=== PATIENT | female | born 1995 | race Caucasian/White ===

== ENCOUNTER 2016-11-15 13:33 | Inpatient (IN) | payer OTHER, MEDICAID ==
[~2016-11-15] VITALS: Ht 172.7 cm; Wt 91.6 kg
[2016-11-15 15:11] LABS: Mean Corpuscular Hemoglobin 27.8 pg (27.0-35.0); Mean Corpuscular Volume 82.5 fL (81-100)
[2016-11-15 19:41] LABS: APPEARANCE,URINE CLEAR (CLEAR,HAZY); COLOR,URINE STRAW (YELLOW); OCCULT BLOOD,URINE NEGATIVE (NEGATIVE); UROBILINOGEN,URINE NORMAL (NORMAL)
[2016-11-15] MEDS ORDERED: Lactated Ringer's 1,000 ML IV PRN (21:41)
[2016-11-15] MEDS ORDERED: Lactated Ringer's 1,000 ML IV SCH (21:43)
[2016-11-15] MEDS ORDERED: Oxytocin 30 Units/500 mL LR 30 UNITS in IV Premix 1 EACH IV PRN (21:45)
[2016-11-15] MEDS ORDERED: Carboprost 250 mCg/mL Inj IM PRN (21:45)
[2016-11-15] MEDS ORDERED: Calcium GLUCOnate 10% (Gm) 1 Gm/10 mL Inj IV PRN (21:45)
[2016-11-15] MEDS ORDERED: Methylergonovine 0.2 mg/mL Inj IM PRN (21:45)
[2016-11-15] MEDS ORDERED: Sodium Chloride LOK Flush 10 mL Syringe IVFLUSH PRN (21:45)
[2016-11-15] MEDS ORDERED: Hemorrhage Kit, Post Partum XX ONE (21:45)
[2016-11-15] MEDS ORDERED: Oxytocin 10 Unit/mL Inj IM PRN (21:45)
[2016-11-15] MEDS ORDERED: Magnesium Sulf 2 Gm/50mL Water 2 GM in IV Premix 1 EACH IV ONE (21:45)
[2016-11-15] MEDS ORDERED: Magnesium Sulf 4 Gm/100 mL H2O 4 GM in IV Premix 1 EACH IV ONE (21:45)
[2016-11-15] MEDS ORDERED: Labetalol 5 mg/mL 4 mL Inj IV PRN (21:45)
[2016-11-15] MEDS ORDERED: hydrALAZINE 20 mg/mL Inj IVPUSH PRN (21:45)
--- NOTE | 2016-11-15 23:16 | PCM.HPOB ---
Subjective Date of Service: Nov 15, 2016 Referring Provider: Admitting Physician: Jose M Salazar MD Primary Care Physician: Nopcp Attending Physician: Jose M Salazar MD Chief Complaint Headache History of Present History of Present Illness 21 Y/O at 36w2d based on TAMARA 12/11/16 based on 8 weeks US. Pt care at [facility] and was planning for transfer of care to [facility]. Was evaluated at triage room here at [facility] 11/12/16. known gestational HTN on out patient monitoring for the last 1 month. Presented with C/O headache "worst headache ever" , change in vision "seeing flashes". BP mostly at 150's/ 90's but occasional sever BP as high as 199/ 110. 11/12/16 had proteinuria with protein creatinine ratio of 7. Protein creatinine ratio today 0.1 and repeat again today 0.09. No epigastric pain, no N/V. No leg or hand swelling. No contractions no loss of fluid, good movements. Problem list: 1. Pendred syndrome (deaf) 2. Hypothyroidism secondary to thyroidectomy secondary to thyroid papillary carcinoma . on 275 mcg Synthroid. 3. GERD , Pepcid 4. Sleep apnea, recent no work up done. 5. N/V in , resolved. 6. Anemia on iron daily. 7. hx of chronic headache. 8. PTSD 9. Hx of depression/anxiety , controlled cooping mechanisms without medications. 10. Hx of seizures. Past Medical History Obstetrical History: 2011 SAB , early no D&C needed. Gynecologic History: Menarche at age 13, irregular menses (PCOS) , no hx of STI. Hx ogf yeast infections. Medical History: No hx of asthma. 1. Pendred syndrome (deaf) 2. Hypothyroidism secondary to thyroidectomy secondary to thyroid papillary carcinoma . on 275 mcg Synthroid. 3. GERD , Pepcid 4. Sleep apnea, recent no work up done. 5. N/V in , resolved. 6. Anemia on iron daily. 7. hx of chronic headache. 8. PTSD 9. Hx of depression/anxiety , controlled cooping mechanisms without medications. 10. Hx of seizures. Surgical History: Total Thyroidectomy Jul 2011 Hx Tobacco Use: No Hx Alcohol Use: No Hx Substance Use: No Past Family History Family History Father: cardiomegaly (since ) , HTN Sisters: Pendred syndrome, Preeclampsia X2, Hypothyroidism, papillary thyroid CA, depression PGF: HTN, DM2 Breast cancer: (great aunts X3 at age 40) Review of Systems ROS 12 points ROS is negative except for items in HPI. Medications Home medications Levothyroxine 275 mcg Pepcid iron daily Zofran Allergy Coded Allergies: Penicillins (Verified Allergy, Unknown, 04/24/16) hydrocodone bitartrate (Verified Allergy, Unknown, 04/24/16) morphine (Verified Allergy, Unknown, 04/24/16) Ambien (Verified Adverse Reaction, 11/15/16) hallucination Exam Vital Signs BP systolic 130-199 mostly 145's. Diastolic 64-111 , mostly in 90's HR 90-100 T 36.8 RR 20 Exam 145 moderate variability positive accelerations no decelerations, category 1. Constitutional: Well-developed HEENT: Atraumatic Lungs: Clear to Auscultation Heart: Regular Rate/Rhythm, Normal S1, Normal S2 Abdomen: Gravid Extremities: Pulses Palpable x4, No Edema Neurological/Psychiatric: Alert, Oriented X3 Neuro: Reflexes 2+, No Clonus noted Additional Information cervix 1/50%/medium consistency/-3/midposition Caraballo score 4 Labs/Diagnostics Ultra Sound 11/12/16 Vertex Estimated Weight (EFW): 2690 g EFW percentile rank: 40 % Maternal Blood Type: AB Group B Strep Results: Positive Rubella: Immune Lab History: Positive for: Hx Chicken Pox Additional Information DM screen WNL (92)HIV nonreactive, Rubella immune, HBsAg Nonreactive, Thyroglobulin Antibody negative (<0.9) , Toxoplasma IgG and IgM negative, TSH 0.26 (10/01/16), Free T4 1.3(10/01/16). GC/CT negative. GBS negative 11/08/16 10/25/16: 24 hr protein (too low) Anatomy US WNL. OB Intrapartum Assessment/Plan Assessment 1 Y/O at 36w2d based on TAMARA 12/11/16 based on 8 weeks US. Preeclampsia with sever feature based on Elevated BP (labial) and vision change and cerebral symptoms, though absent proteinuria. Patient was discussed with MFM ( Dr. Brigitte Gonzales) via [facility], and she agreed to proceed with induction if labor and plan of care was discussed: 1. start MgSO4 2. IV labetalol or hydralazine for sever BP 3. may consider labetalol oral scheduled dose (will consider after MgSO4 bolus if indicated) 4. Induction of labor. The above plan was discussed with patient and reviewed R/B/A of induction of labor and risk of prematurity, patient agreed to the above plan and desires to proceed with Induction of labor, informed consent was signed. Cervidil was placed at 2213. monitor for I/O Magnesium level Q6 Preeclampsia labs Q 12 hours ' bedrest seizure precautions Pain Management: considering epidural when in active labor. Edith Galdamez MD Nov 15, 2016 23:16
[2016-11-15] MEDS ORDERED: diphenhydrAMINE 25 mg Capsule PO PRN (23:35)
[2016-11-16] MEDS ORDERED: Magnesium Sulfate 20 Gm/500 mL Water Premix IV ONE (00:17)
[2016-11-16] MEDS: Magnesium Sulf 20 Gm/500mL H2O 20 GM in IV Premix 1 EACH IV SCH ×3 (00:26→19:40)
--- NOTE | 2016-11-16 01:06 | HP ---
[address] [address] HISTORY AND PHYSICAL PATIENT: CARLOS MCLEAN : 1995 MR#: [id number] ADMIT: 11/15/2016 JOB ID: [id number] HISTORY OF PRESENT ILLNESS: The patient is a 21-year-old, 2, para 0, who has been getting her care at [facility] in [place], [place], comes to Labor and Delivery with complaint of headache. Patient also reports slight blurred vision. She had her blood pressure checked in triage several times. It is in 150s/100s. She reports good movements. heart rate tracing is reactive, category 1. Baseline 140 beats per minute. The patient does not have any contractions. PHYSICAL EXAMINATION: Vital signs: Blood pressure 152/100, pulse 80, respiratory rate 18. Oxygen saturation 98% on room air. HEENT: PERRLA. Chest: Clear bilaterally. No adventitious sounds. Cardiovascular: Regular rate and rhythm. Abdomen is gravid, fundal height at 36 cm, nontender. Extremities: No pitting edema. Pelvic exam declined. OBSTETRICAL HISTORY: She has a history of one spontaneous in the first trimester in 2011. PAST MEDICAL HISTORY: 1. Anxiety. 2. Papillary carcinoma of the thyroid, status post thyroidectomy, currently receiving supplemental levothyroxine. 3. Depressive disorder. 4. History of seizures. 5. History of recurrent headache. FAMILY HISTORY: Significant for thyroid disease and -induced hypertension in her sister. CURRENT MEDICATIONS: 1. Synthroid, a total of 275 mcg per day. 2. vitamins. ALLERGIES: 1. AUGMENTIN. 2. MORPHINE. 3. PENICILLIN. 4. VICODIN. SOCIAL HISTORY: Patient denies smoking, alcohol, illicit recreational drug use. The patient is having congential deafness, communication is limited, history is obtained through the environmental engineering aide that knows sign language. ASSESSMENT AND PLAN: The patient is a 21-year-old, 2, para 0, at 36 weeks and 3 days. Comes to Labor and Delivery with complaint of headache and blurred vision. Blood pressure is elevated in 150s/100s. She had complaints about headache and blood pressure problems on her two recent visits in clinic. The patient is being admitted for observation. Preeclampsia panel labs being sent. Urine is sent for protein and creatinine ratio. Intermittent heart rate monitoring will be provided. -induced hypertension and preeclampsia were discussed with the patient. Possible induction of labor at 37 weeks was discussed. She does not fit the criteria of preeclampsia with severe features at the time of admission. Will follow up on the lab results to discuss further management and possible need for magnesium sulfate. LANDY
[2016-11-16] MEDS: fentaNYL-PF 50 mCg/mL 2 mL Inj IVPUSH PRN ×4 (02:39→10:44)
[2016-11-16] MEDS: Ondansetron 2 mg/mL 2 mL Inj IVPUSH PRN ×4 (04:27→22:12)
--- NOTE | 2016-11-16 08:48 | PCM.PNOBIP ---
Subjective Date of Service Nov 16, 2016 Delivery plan: Spontaneous Vaginal Delivery Subjective 21-year-old 010 presents to [facility] triage on 11/15/2016 with elevated blood pressures and desiring to transfer care. She has previously seen at [facility] in [place]. It was decided to start magnesium infusion and proceed with induction. Patient did not tolerate Cervidil, it was removed just after 6 AM this morning. She is having contractions every 2 minutes. Last cervical check at 4:44 AM was 1 cm 75% effaced and -2 station. She has been getting IV fentanyl for pain control which has not been adequate. She desires epidural when reasonable to do so. Pain Management: IV Push Gastrointestinal: No N/V Group B Strep Results: Negative Rubella: Immune Blood Type: AB RH Type: Positive Labs Laboratory Tests 11/15/16 14:50: White Blood Count 10.0, Red Blood Count 3.95, Hemoglobin 11.0, Hematocrit 32.6, Mean Corpuscular Volume 82.5, Mean Corpuscular Hemoglobin 27.8, Mean Corpuscular Hemoglobin Concent 33.7, Red Cell Distribution Width 11.9, Platelet Count 379, Hematology Comments labs her records from [facility]: Blood type AB+, antibody screen negative, GBS negative, rubella immune, HB SAG nonreactive, HIV nonreactive TSH 1.11, toxoplasmosis negative. Patient had low thyroglobulin level of 0.22 reference range 2.0-35. Gonorrhea Chlamydia negative, glucose tolerance test normal Exam Vital Signs Vital Signs Blood pressure 133/93 heart rate 92-124 bpm Vital Signs: VS reviewed, stable Heart Tracings Heart Tones Baseline 130-135 bpm Heart Rate Variability: Minimal Heart Rate Accelleration: Present Heart Rate Deceleration: Absent Heart Rate Category: I Tocometry/IUPC Contraction frequency in minutes: 2 min irregular Exam Abdomen: Fundus firm Extremities: Edema 1+ Lungs: Clear to Auscultation Heart: Regular Rate/Rhythm, No Murmurs/Rubs/Gallops General: Alert, Oriented X3 OB Intrapartum Assessment/Plan Assessment 21 yo at 36 weeks 3 days gestation with induced hypertension. She has been followed at the [facility] in [place]. Currently on magnesium which should continue until 11/16 at 21:45 for the full 24 hour course. Continue with induction of labor and expectant management Intrapartum plan: Continue expected management Intrapartum Pain Management: May have epidural when desired Pain Evaluation: Pain not Controlled Post plan: Continue routine post care VTE Mechanical Devices: Intermittant Pneumatic CD Attending Statement The patient was seen and examined together with Dr. Orellana on 11/16/2016 and I agree with the history, exam and plan as outlined in the note above. She is doing well. Cervidil was placed last night at 10pm and removed this am at 6 d/t patient's pain. Her pain is better controlled with Fentanyl. I discussed next step in management after her cervical exam was found to be bishops score of 6 with 1.5cm/80%/-2 anterior. I placed a cervical ripening balloon and put 60mL in internal balloon, 30mL in vaginal balloon. Continue IOL. No signs or symptoms of mag toxicity. BPs within okay range. Will repeat CBC and CMP Q12 hours. Has standing order currently for magnesium checks Q6 hours. Good UOP. / MD JOSH Cuello ERIKA R DO Nov 16, 2016 07:35 David Shepherd MD Nov 16, 2016 11:09
--- NOTE | 2016-11-16 09:25 | NUR ---
CHECK WRITING MACHINE OPERATOR referral received from family charge hand. Mother is in labor today and RN would like CHECK WRITING MACHINE OPERATOR to meet with mom tomorrow on 11/17/16.
[2016-11-16] MEDS ORDERED: Lactated Ringer's 500 ML IV ONE (11:58)
[2016-11-16] MEDS ORDERED: Lactated Ringer's 1,000 ML IV SCH (11:58)
[2016-11-16] MEDS ORDERED: Ondansetron 2 mg/mL 2 mL Inj IVPUSH PRN (12:00)
[2016-11-16] MEDS ORDERED: EPHEDrine Sulfate 50 mg/mL Inj IVPUSH PRN (12:00)
[2016-11-16] MEDS ORDERED: Atropine 1 mg/10 mL (Code) Syringe IVPUSH PRN (12:00)
[2016-11-16] MEDS: Lactated Ringer's 1,000 ML IV SCH (12:33)
[2016-11-16 16:46] LABS: Mean Corpuscular Hemoglobin 27.9 pg (27.0-35.0); Mean Corpuscular Volume 83.6 fL (81-100)
--- NOTE | 2016-11-16 19:18 | PCM.PNOBIP ---
Subjective Date of Service Nov 16, 2016 Delivery plan: Spontaneous Vaginal Delivery Visit History Lisa is a 21-year-old at 36w3d who was admitted on 11/15/2016 for IOL for severe preeclampsia. She was started on Cervidil and it was removed on at 6am due to patient request secondary to pain. She then had a cervical ripening balloon placed around 10:30am. Subjective Doing okay. Reports mild pain. Pain Management: IV Push Gastrointestinal: No N/V Group B Strep Results: Negative Rubella: Immune Blood Type: AB RH Type: Positive Labs Laboratory Tests 11/15/16 14:50: Hematology Comments 11/16/16 16:01: White Blood Count 18.1, Red Blood Count 3.77, Hemoglobin 10.5, Hematocrit 31.5, Mean Corpuscular Volume 83.6, Mean Corpuscular Hemoglobin 27.9, Mean Corpuscular Hemoglobin Concent 33.3, Red Cell Distribution Width 11.7, Platelet Count 359 Exam Vital Signs Vital Signs Contraction frequency in minutes: MVUs: Vital Signs: VS reviewed, stable (115/85 115) Heart Tracings Heart Tones Baseline 145 bpm Heart Rate Variability: Moderate Heart Rate Accelleration: Present Heart Rate Deceleration: Absent Heart Rate Category: I Tocometry/IUPC Ctx - rare - difficult to asses Sterile Vaginal Exam Cervical Dilation: 4 cms Cervical Effacement: 50 % Station: -3 Exam Extremities: Edema 1+ General: Alert, Oriented X3, Cooperative OB Intrapartum Assessment/Plan Assessment Lisa is a 21-year-old at 36w3d who was admitted on 11/15/2016 for IOL for severe preeclampsia. Problems: (1) Severe pre-eclampsia in third trimester Plan: -No BPs requiring treatment at this time. -Continue magnesium for seizure prophylaxis. No signs or symptoms of toxicity at this time. -Continue [id number] labs and Q6 hour mag checks IOL: balloon is out and cervix is 4cm - will start IV Pitocin per IOL protocol. Epidural okay per patient request. Status: Acute ICD Code: O14.13 Intrapartum plan: Continue expected management Intrapartum Pain Management: May have epidural when desired Pain Evaluation: Pain not Controlled VTE Mechanical Devices: Intermittant Pneumatic CD David Shepherd MD Nov 16, 2016 19:18
[2016-11-16] MEDS ORDERED: Oxytocin 30 Units/500 mL LR 30 UNITS in IV Premix 1 EACH IV PRN (19:20)
--- NOTE | 2016-11-16 21:42 | PCM.HPANE ---
Patient Data Surgeon Admitting Provider:Jose M Salazar MD Attending Provider:Jose M Salazar MD Primary Care Physician:Audrey Other Provider:Armida De Los Santos Anesthesia Reason for Visit 36 Week 36 WEEK Ht/WT & BMI Body Mass Index Allergies Coded Allergies: Penicillins (Verified Allergy, Unknown, 04/24/16) hydrocodone bitartrate (Verified Allergy, Unknown, 04/24/16) morphine (Verified Allergy, Unknown, 04/24/16) zolpidem (Verified Adverse Reaction, Unknown, 11/15/16) hallucination Diabetes History Hx Diabetes?: No Medications Hypertension Medication: No Home Meds Incl Beta Amelia: No History History of ENT Problems?: Yes HEENT History: Positive for:: Hearing Problem Hx of Heart Problems?: No Cardiovascular History: Denies:: Congestive Heart Failure Hypertension Hx of Respiratory Problem?: No Respiratory History: Denies:: Tuberculosis Neurological History: Positive for:: Headaches (chronic headaches) Hx of GI Problems?: No Hx of Problems?: No Female Hx: Positive for:: Currently (preeclampsia) Hx Musculoskeletal Problems?: No Hx of Psycho/Social Problems?: Yes Psycho Social History: Positive for:: Hx Depression (per medical record) Suicide Attempt Hx Surgeries?: Yes (thyroidectomy, PEDRED SYNDROME, RAYNAUDS DISEASE, PCOS.) Hx Any Other Health Problems?: Yes (Pendred syndrome with hearing loss and history of thyroidectomy on thyroid supplementation) History Blood Transfusions: Denies:: Blood Transfusions Hx Diabetes: No Hx Alcohol Use: NoHx Substance Use: No Smoking Status: Unknown if Ever Smoker Have You Smoked inLast 12 mo: No Stop/Bang FRANCISCO Risk Assessment: Low Risk, <3 Yes Risk Assessment Category Category 1A: Patient has history of documented sleep apnea, and HAS NOT received any narcotic, sedative or anesthesia administration during this stay. Category 1B: Patient has history of documented sleep apnea, and HAS received any narcotic , sedative or anesthesia administration during this stay Category 2: Patient has SUSPECTED Obstructive Sleep Apnea, and HAS received any narcotic , sedative or anesthesia administration during this stay. Category 3: Patient has SUSPECTED Obstructive Sleep Apnea and HAS NOT received narcotic, sedative or anesthesia administration during this stay. Category 4: Outpatient in Procedural Areas with known sleep apnea or who screen positive for High Risk via the STOP/BANG questionnaire. Exam Exam General Appearance: Alert, Oriented X3, Cooperative, No Acute Distress HEENT/AIRWAY: MP 2 Lungs: Clear to Auscultation, Normal Air Movement Heart: Exam Unremarkable, Regular Rate/Rhythm, No Murmurs/Rubs/Gallops Meds/Labs/Diagnostics Admission Meds Current Medications Acetaminophen (Tylenol) 975 mg ONCE ONCE PO Last administered on 11/15/16 19: 07; Start 11/15/16 at 17:40; Stop 11/15/16 at 17:44; Status DC Dinoprostone 10 mg 10 mg ONCE ONCE VAGINAL Last administered on 11/15/16 22: 12; Start 11/15/16 at 21:45; Stop 11/15/16 at 21:56; Status DC Magnesium Sulfate/ Premix (Magnesium Sulf 4 Gm/100 mL H2O/ IV Premix) 100 ml @ 200 mls/hr ONCE ONCE IV Last administered on 11/15/16 23:27; Start 11/15/16 at 21:45; Stop 11/15/16 at 22:14; Status DC Levothyroxine Sodium/ Levothyroxine Sodium (Synthroid/ Synthroid) 275 mcg DAILYAC PO Last administered on 11/16/16 08:15; Start 11/16/16 at 07:30 Labs Test 11/15/16 14:50 11/15/16 18:40 11/16/16 09:46 White Blood Count 10.0th/mm3 (3.8-10.1) Red Blood Count 3.95mil/mm3 (3.90-5.20) Hemoglobin 11.0g/dL (12.0-15.6) Hematocrit 32.6% (35.0-46.0) Mean Corpuscular Volume 82.5fL (81-100) Mean Corpuscular Hemoglobin 27.8pg (27.0-35.0) Mean Corpuscular Hemoglobin Concent 33.7% (32.0-37.0) Red Cell Distribution Width 11.9% (12.3-15.4) Platelet Count 379bil/L (150-400) Hematology Comments Blood Urea Nitrogen 5mg/dL (6-20) Creatinine 0.50mg/dL (0.57-1.00) Uric Acid 4.7mg/dL (2.6-7.2) Aspartate Amino Transf (AST/SGOT) 17U/L (0-50) Alanine Aminotransferase (ALT/SGPT) 12U/L (0-32) Urine Color Straw (YELLOW) Urine Appearance Clear (CLEAR,HAZY) Urine pH 7.0 (5.0-8.0) Urine Specific [place] 1.015 (1.003-1.035) Urine Protein Negativemg/dL (NEG,TRACE) Urine Glucose (UA) Negativemg/dL (NEGATIVE) Urine Ketones Negativemg/dL (NEGATIVE) Urine Occult Blood Negative (NEGATIVE) Urine Nitrite Negative (NEGATIVE) Urine Bilirubin Negative (NEGATIVE) Urine Urobilinogen Normalmg/dL (NORMAL) Urine Leukocyte Esterase Moderate (NEGATIVE) Urine RBC 0-2/hpf (0-2) Urine WBC 6-10/hpf (0-5) Urine Epithelial Cells None/hpf (NONE-MOD) Urine Crystals None seen (NONE SEEN) Urine Bacteria Few/hpf (NONE-FEW) Urine Hyaline Casts None/lpf (NONE) Urine Granular Casts None seen (NONE SEEN) Urine Waxy Casts None seen (NONE SEEN) Urine Red Blood Cell Casts None seen (NONE SEEN) Urine White Blood Cell Casts None seen (NONE SEEN) Urine Mucus None seen (None Seen) Urine Trichomonas None seen (NONE SEEN) Urine Yeast None (NONE SEEN) Urinalysis Comment None Urine Culture Reflexed Indicated Urine Random Creatinine 45mg/dL (16-392) Urine Random Total Protein 4mg/dL (0-15) Urine Protein/Creatinine Ratio 0.09 Magnesium Level 4.4mg/dL (1.6-2.6) Plan Impression Patient chart reviewed, patient interviewed and anesthestic plan with risks, benefits, and alternatives discussed, and informed consent obtained. ASA Physical Status: ASA3 Severe Disease Anesthetic Plan: Epidural Bene/Risks/Altern/Consents: Yes (via sign language interpretation provided by family member, patient elects to proceed.) HP Complete Prior to Induction: Yes Mariano Guan MD Nov 16, 2016 12:00
[2016-11-17 02:42] LABS: Mean Corpuscular Hemoglobin 27.6 pg (27.0-35.0); Mean Corpuscular Volume 83.4 fL (81-100)
[2016-11-17] MEDS: Lactated Ringer's 1,000 ML IV SCH ×2 (03:03→08:20)
[2016-11-17 03:16] LABS: Magnesium 5.8 mg/dL (1.6-2.6)
[2016-11-17] MEDS: fentaNYL 2 mCg/mL-Bupiv 0.125% 100 ML EPIDURAL SCH ×2 (03:28→08:20)
[2016-11-17] MEDS: Magnesium Sulf 20 Gm/500mL H2O 20 GM in IV Premix 1 EACH IV SCH ×2 (05:03→15:14)
--- NOTE | 2016-11-17 10:18 | PCM.PNOBIP ---
Subjective Date of Service Nov 17, 2016 Delivery plan: Spontaneous Vaginal Delivery Subjective 21-year-old 010 presents to [facility] triage on 11/15/2016 with elevated blood pressures and desiring to transfer care. She has previously seen at [facility] in [place]. It was decided to start magnesium infusion and proceed with induction. She had a balloon catheter placed during the day . This morning she is 5 cm dilated and oxytocin is being used to augment labor. There was some concern overnight with late decelerations on heart tracing that resolved with repositioning, for this reason oxytocin was not increased normally. She is continuing to have contractions every 2-3 minutes. Patient received epidural anaesthesia early this morning. Maternal Date/Time of ROM: November 17, 2016 06:45 Artificial with a large amount of clear fluid. Pain Management: Epidural Group B Strep Results: Negative Rubella: Immune Blood Type: AB RH Type: Positive Labs Laboratory Tests 11/15/16 14:50: Hematology Comments 11/17/16 02:24: White Blood Count 18.2, Red Blood Count 3.62, Hemoglobin 10.0, Hematocrit 30.2, Mean Corpuscular Volume 83.4, Mean Corpuscular Hemoglobin 27.6, Mean Corpuscular Hemoglobin Concent 33.1, Red Cell Distribution Width 11.9, Platelet Count 343 Exam Vital Signs Vital Signs Contraction frequency in minutes: 2-3 minutes Vital Signs: VS reviewed, stable Heart Tracings Heart Tones Baseline 135 bpm Heart Rate Variability: Minimal Heart Rate Accelleration: Present Heart Rate Deceleration: Present (lates, resolution with position change) Heart Rate Category: I Tocometry/IUPC Contraction frequency in minutes: 2-3 min Sterile Vaginal Exam Cervical Dilation: 5 cms Cervical Effacement: 80 % Station: -2 Exam Abdomen: Fundus firm Extremities: Edema 1+ Lungs: Clear to Auscultation, Normal Air Movement Heart: Exam Unremarkable, Regular Rate/Rhythm, No Murmurs/Rubs/Gallops General: Alert, Oriented X3, Cooperative, No Acute Distress OB Intrapartum Assessment/Plan Assessment 21-year-old admitted to [facility] on 11/15/2016 with elevated blood pressures and desiring to transfer care. She has previously seen at [facility] in [place]. She was started on Magnesium for severe features of preeclampsia. She had cervical ripening with Cervidil and subsequently with balloon catheter dilation. Oxytocin was started. Early this morning membranes were ruptured with amniohook with a large amount of clear fluid, IUPC, and FSE placed. Patient subsequently delivered via at 09:24 this morning. Problems: (1) Severe pre-eclampsia in third trimester Plan: -No BPs requiring treatment at this time. -Continue magnesium for seizure prophylaxis. No signs or symptoms of toxicity at this time. -Continue [id number] labs and Q6 hour mag checks -AROM with a large amount of clear fluid and placement of IUPC and scalp electrode placed this morning. Patient subsequently feeling more intense contractions. IOL: cervix is 5cm - will continue IV Pitocin per IOL protocol. Epidural currently. Status: Acute ICD Code: O14.13 Intrapartum plan: Continue expected management Intrapartum Pain Management: Epidural Pain Evaluation: Adequate Pain Control Post plan: Continue routine post care VTE Mechanical Devices: Intermittant Pneumatic CD Attending Statement The patient was seen and examined together with Dr. Orellana on 11/17/2016 and I agree with the history, exam and plan as outlined in the note above. / MD JOSH Cuello ERIKA R DO Nov 17, 2016 07:24 David Shepherd MD Dec 09, 2016 17:23
[2016-11-17] MEDS ORDERED: Lactated Ringer's 1,000 ML IV SCH (10:56)
[2016-11-17] MEDS ORDERED: Witch Hazel-Glycerin Pads TOPICAL PRN (11:00)
[2016-11-17] MEDS ORDERED: Oxytocin 10 Unit/mL Inj IM PRN (11:00)
[2016-11-17] MEDS ORDERED: Hemorrhage Kit, Post Partum XX ONE (11:00)
[2016-11-17] MEDS ORDERED: HYDROcodone-APAP 5-325 mg Tablet PO PRN (11:00)
[2016-11-17] MEDS ORDERED: Oxytocin 30 Units/500 mL LR 30 UNITS in IV Premix 1 EACH IV PRN (11:00)
[2016-11-17] MEDS ORDERED: Carboprost 250 mCg/mL Inj IM PRN (11:00)
[2016-11-17] MEDS ORDERED: Methylergonovine 0.2 mg/mL Inj IM PRN (11:00)
[2016-11-17] MEDS ORDERED: LANOlin HPA 7 Gm Ointment TOPICAL PRN (11:00)
[2016-11-17] MEDS ORDERED: Benzocaine (Dermoplast) 20% 60 Gm Spray TOPICAL PRN (11:00)
--- NOTE | 2016-11-17 11:32 | OP ---
[address] [address] OPERATIVE REPORT PATIENT: CARLOS MCLEAN : 1995 MR#: [id number] ADMIT: 11/15/2016 JOB ID: [id number] DATE OF SURGERY: 11/17/2016 SURGEON: Jose M Salazar MD PREOPERATIVE DIAGNOSIS(ES): POSTOPERATIVE DIAGNOSIS(ES): PROCEDURE: Delivery summary. DESCRIPTION OF PROCEDURE: The patient is a 21-year-old 1, para 1 now, who was admitted to Labor and Delivery on November 15, 2016 for induction of labor because of preeclampsia with severe features. The patient was seen in the evening of November 15, 2016, was complaining of headache and blurred vision, her blood pressure was elevated in the 160s/100s. She got care in [facility], was followed for -induced hypertension there. 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 She is hearing impaired since . The patient was admitted. labs were sent. She was started on magnesium sulfate, induction of labor was started with Cytotec that was followed by cervical ripening balloon. She gradually progressed until in labor and was examined in the morning of November 17, 2016 at 5 o'clock a.m. when she had spontaneous rupture of membranes and she was found to be 5 cm dilated, 90% effaced, 0 station. The patient progressed to full dilation at 9:12 a.m. November 17, 2016, the head was in station class 2. She started pushing at around the same time, progressed while in the second stage of labor and underwent spontaneous vaginal delivery at 9:24 a.m. Delivered a male with Apgars 7 at one minute and 9 at five minutes, weight 5 pounds and 2 ounces. The delayed cord clamping was done. The infant was handed off to the waiting life support technician. Cord blood was sent. The placenta was sent to Pathology. The placenta was delivered at 9:25 a.m. and was found to be intact with three-vessel cord. The patient had small first degree periurethral lacerations that were repaired with three [id number] 3-0 Vicryl sutures. All instrument and sponge counts were correct x2. Estimated blood loss 250 mL. Wong catheter was replaced after delivery and magnesium sulfate was continued for 12 hours. There was no need in additional tocolytics beside of oxytocin .
--- NOTE | 2016-11-17 12:00 | NUR ---
Social Work Note: Referral received. Pt just delivered and will be in the hospital through 11/18/2016. WAREHOUSE PROCESSOR spoke with professor of forestry Carrie and it was determined that WAREHOUSE PROCESSOR would attempt to complete assessment today, if this proves impossible, Pt will be assessed first thing in the am on 11/18/2016. DEANN Hand, AAC
[2016-11-17 14:41] LABS: Mean Corpuscular Volume 84.3 fL (81-100)
[2016-11-17 14:45] LABS: Mean Corpuscular Hemoglobin 27.4 pg (27.0-35.0)
[2016-11-17 14:58] LABS: Magnesium 5.4 mg/dL (1.6-2.6)
[2016-11-17] MEDS ORDERED: Magnesium Sulf 20 Gm/500mL H2O 20 GM in IV Premix 1 EACH IV SCH (20:05)
[2016-11-17] MEDS: Ascorbic Acid 500 mg Tablet PO SCH (21:42)
[2016-11-18 06:42] LABS: Mean Corpuscular Hemoglobin 27.2 pg (27.0-35.0); Mean Corpuscular Volume 86.2 fL (81-100)
--- NOTE | 2016-11-18 09:48 | PCM.PNOBPP ---
Subjective Date of Service Nov 18, 2016 Post : Spontaneous Vaginal Delivery Subjective 21-year-old [address] [facility] triage on 11/15/2016 with elevated blood pressures and desiring to transfer care. She has previously seen at [facility] in [place]. Magnesium infusion was started and induction of labor was initiated. She subsequently delivered via normal spontaneous vaginal delivery on Nov 17. Magnesium infusion was stopped 12 hours post with adequate urine output. Kenny was removed, she has been urinating well and ambulating, no flatus or bowel movement since delivery. She is pumping with the goal to breast feed. Lochia: Normal Pain Management: Epidural Gastrointestinal: No N/V Postop Activity: Ambulating Independently Group B Strep Results: Negative Rubella: Immune Blood Type: AB RH Type: Positive Labs Laboratory Tests 11/15/16 14:50: Hematology Comments 11/18/16 06:03: White Blood Count 15.1, Red Blood Count 3.05, Hemoglobin 8.3, Hematocrit 26.3, Mean Corpuscular Volume 86.2, Mean Corpuscular Hemoglobin 27.2, Mean Corpuscular Hemoglobin Concent 31.6, Red Cell Distribution Width 11.9, Platelet Count 301 Exam Vital Signs Vital Signs: VS reviewed, stable Exam Abdomen: Fundus firm, Abdomen soft, Abdomen appropriately tender : Voiding without difficulty Lungs: Clear to Auscultation, Normal Air Movement Heart: Regular Rate/Rhythm, No Murmurs/Rubs/Gallops General: Alert, Oriented X3 OB Post Assessment/Plan Assessment 21-year-old admitted to [facility] on 11/15/2016 with elevated blood pressures and desiring to transfer care. She has previously seen at [facility] in [place]. She was started on Magnesium for severe features of preeclampsia. She had cervical ripening with Cervidil and subsequently with balloon catheter dilation. Oxytocin was started. Early in the morning of Nov 17 membranes were ruptured with amniohook with a large amount of clear fluid, IUPC, and FSE placed. She soon after delivered via . Magnesium infusion stopped 12 hours post . Patient and baby doing well, meeting post goals. Problems: (1) Spontaneous vaginal delivery Plan: Continue routine post care. Status: Acute ICD Code: O80 (2) Severe pre-eclampsia in third trimester Plan: -No BPs requiring treatment at this time. -CBC and CMP in the morning Status: Acute ICD Code: O14.13 Pain Evaluation: Adequate Pain Control VTE Mechanical Devices: Intermittant Pneumatic CD Post plan: Continue routine post care Attending Statement Patient seen and examined. She is doing well postoperative day#1. She was on magnesium for what is presumed chronic hypertension with superimposed severe pre -eclampsia, though as her care was limited there is question of whether this was actually only severe preeclampsia. Magnesium has been off since 12 hours after delivery which was yesterday evening and her kenny catheter is out. Prior to kenny removal she had excellent urine output and she is now currently voiding without difficulty. Magnesium was therapeutic prior to discontinuation. She is currently doing well. Her blood pressures have been controlled in the nonsevere range and at this time we will hold off on restarting her labetalol. Will restart if BP consistently >150/100. She also does have a mild headache this AM, but has a history of chronic migraine headaches. Labs reviewed and liver function tests and cr are within normal limits. Plan to start iron for her anemia. She is pumping breast milk and lochia is minimal. Continue to monitor closely at this time. Ferrous sulfate to be started for her anemia. MICHAEL MORENO DO Nov 18, 2016 09:48 Sara Orourke MD Nov 19, 2016 13:31
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
[2016-11-19 01:12] LABS: Mean Corpuscular Hemoglobin 27.3 pg (27.0-35.0); Mean Corpuscular Volume 86.8 fL (81-100)
--- NOTE | 2016-11-19 05:21 | PROG NOTE ---
[address] [address] PROGRESS NOTE PATIENT: CARLOS MCLEAN : 1995 MR#: [id number] ADMIT: 11/15/2016 JOB ID: [id number] DATE: 11/19/2016 I was called in at real estate inspector for possible patient discharge as [facility] and parents were interested in joining the baby. Upon questioning the patient, she reports headaches, right upper quadrant pain. She denied any chest pain ; shortness of breath ; visual symptoms or leg pain. LABORATORIES: H and H is 9.1 and 28.9 versus 8.3 and 26.3 yesterday. White blood count is 12, platelets are 361, stable CBC. Last comprehensive metabolic panel was from November 17. PHYSICAL EXAMINATION: Patient is alert, oriented x3. Vital signs: Blood pressure in the last 8 hours ranging from 163-135 systolics over 102-80 diastolics, with the last blood pressure is 164/102. Respirations are 16. Pulse is 85. Heart is regular rate and rhythm. Positive S1, S2. Lungs clear to auscultation bilaterally upper and lower zones. Abdomen: There is moderate right upper quadrant tenderness on palpation. Firm uterine fundus palpated at the level of the umbilicus, nontender, positive bowel sounds, nondistended abdomen. Perineum: No active bleeding. Lower extremities: No calf tenderness appreciated bilaterally. 2+ pitting edema up to knees bilaterally. Deep tendon reflexes are 3+ upper, 3+ lower. no clonus. ASSESSMENT/PLAN: The patient is 21-year-old day #2, status post spontaneous vaginal delivery after successful induction of labor for chronic hypertension with superimposed preeclampsia. 1. Still elevated blood pressures . The patient received 24 hours of magnesium sulfate and her blood pressures were controlled at that time, but blood pressures started to increase with symptoms of preeclampsia. Start on labetalol 200 mg q.12 h. p.o. and will keep monitoring the blood pressure and adjusting labetalol dose accordingly. Consider restarting 24 hours of magnesium sulfate for seizure prophylaxis if blood pressures worsen or patient's symptoms worsen. 2. Anemia: continue with iron and vitamin C. 3. Hypothyroidism. Continue thyroid medications. 4. Gastroesophageal reflux disease. Patient is on Pepcid. 5. History of depression and anxiety. Patient is controlled without medications. 6. Check comprehensive metabolic panel in the morning. Patient has her field contact technician with her in the room who explained everything to the patient. After discussing all the above, the patient agreed to the plan. MTDD
[2016-11-19 07:59] LABS: Mean Corpuscular Hemoglobin 27.8 pg (27.0-35.0); Mean Corpuscular Volume 86.6 fL (81-100)
[2016-11-19] MEDS: Ascorbic Acid 500 mg Tablet PO SCH ×2 (08:00→09:57)
[2016-11-19] MEDS: Lactated Ringer's 1,000 ML IV SCH ×2 (09:10→13:27)
[2016-11-19] MEDS ORDERED: Ascorbic Acid PO (13:10)
[2016-11-19] MEDS ORDERED: FERR-74 PO (13:10)
[2016-11-19] MEDS ORDERED: IBUP-1827 PO (13:10)
[2016-11-19] MEDS ORDERED: DOCU-41 PO (13:10)
[2016-11-19] MEDS ORDERED: LABE100T4 PO (13:10)
--- NOTE | 2016-11-19 15:52 | PATH ---
SURGICAL PATHOLOGY Attending Physician:Jose M Salazar MD CASE STATUS: Signed Out PATIENT NAME: CARLOS MCLEAN PID: [id number] : 1995 DATE COLLECTED:11/17/2016 00:00 SPECIMEN: Placenta CLINICAL HISTORY: Preeclampsia with severe features. Induction of labor. IUP 36 weeks. PLACENTA FINAL DIAGNOSIS: Placenta: Hooks placenta, small for gestational age (349 g, less than 10th percentile for 36 weeks gestation). No infarcts or chorioamnionitis identified. ICD10 O43.8 GROSS DESCRIPTION: The specimen is received in formalin, labeled with the patient's name and consists of an intact placenta and includes placental disc (349 g, 15.1 x 14.5 x 2.7 cm), umbilical cord (length-22.3 cm, diameter-1.2 x 1.0 cm) and membranes. The membranes are ruptured 1.1 cm from the free edge of the placenta and are thick and semi-translucent. The umbilical cord is attached 5.3 cm from the edge of the placenta and contains 3 vessels. The surface is smooth and shiny with no evidence of meconium. The maternal surface is dark maroon with normal cotyledon formation. The placental disc is spongy with no hematomas, infarcts, nodules, masses, or lesions. Section code: (A) edge of placenta with membranes, umbilical cord; (B, C) placenta, 2 full thickness sections. 11/18/16 JM MICRO DESCRIPTION: Please see diagnosis. ICD-9 CODES: CPT CODES: 1: 51967 Electronically Signed Out Christen Hoffman MD [facility] [address], [place] [address] Technical component performed at [facility], [address] [place] [address] Ave[address], [place], [address]
--- NOTE | 2016-11-19 16:36 | DIS ---
[address] [address] DISCHARGE SUMMARY PATIENT: CARLOS MCLEAN : 1995 MR#: [id number] ADMIT: 11/15/2016 JOB ID: [id number] DIS: DATE OF SERVICE: 11/19/2016 HOSPITAL COURSE: This is a 21-year-old female, para one. She had a vaginal delivery after induction of labor for preeclampsia. She got 24 hours of magnesium after delivery and the magnesium stopped at around 9 p.m. November 17, 2016. After the magnesium stopped there was noticed elevated blood pressure yesterday evening until 2 a.m. this morning. Labetalol 200 mg twice a day started for her. The patient has no headache, no blurry vision. No epigastric pain. No significant abdominal pain. Her lochia was moderate to minimal. Her blood pressure after the labetalol started has been has been normal for the last more than 14 hours. She was very nervous earlier because her baby transferred to [facility] for observation. Now everything is stable and she is not nervous and is happy, but she strongly desires to get discharged so she can go down to see her baby. PHYSICAL EXAMINATION: Cardiac: RRR. No murmur. Pulmonary: Clear. Abdomen: Soft and her uterus is well contracted. Extremities: Nontender. ASSESSMENT: 1. A 21-year-old female, para 1, status post vaginal delivery. 2. Preeclampsia status post magnesium and elevated blood pressure, on labetalol at this time. PLAN: The patient is stable. Blood pressure in normal range. No signs of preeclampsia. I discussed with the patient that ideally I would like to keep her here longer for another 12 hours observation but the patient strongly desires to be discharged and go down to [place] to see her baby. She claimed her father is a nurse and going to monitor her blood pressure every 2-4 hours. If there is any abnormal reading her dad will send her back to the ER. Also gave her the precautions of if she has headache, blurry vision, epigastric pain, she needs go back to the ER as soon as possible. She will come back to office for followup in two weeks after the delivery. Medication given including labetalol 200 mg twice a day.
[2016-11-19 16:52] VITALS: BP 135/86; PULSE 75; RESP 16
== END 2016-11-19 17:45 | disposition home or self-care (01) | DRG 775 ==
LOC: FBCO 13:33 → FBC 14:39 → OBSVTOIN 21:41 → FBC 21:41
PROVIDERS: ADMIT Legal Medicine; ATTEND Legal Medicine
PROC: 3E033GC Introduction of Other Therapeutic Substance into Peripheral Vein, Percutaneous Approach (ICD-10-PCS; 2016-11-15)
PROC: 3E033VJ Introduction of Other Hormone into Peripheral Vein, Percutaneous Approach (ICD-10-PCS; 2016-11-15)
PROC: 3E0P7GC Introduction of Other Therapeutic Substance into Female Reproductive, Via Natural or Artificial Opening (ICD-10-PCS; 2016-11-16)
PROC: 10E0XZZ Delivery of Products of Conception, External Approach (ICD-10-PCS; principal; 2016-11-17)
PROC: 0HQ9XZZ Repair Perineum Skin, External Approach (ICD-10-PCS; 2016-11-17)
PROC: 10907ZC Drainage of Amniotic Fluid, Therapeutic from Products of Conception, Via Natural or Artificial Opening (ICD-10-PCS; 2016-11-17)
PROC: 10H07YZ Insertion of Other Device into Products of Conception, Via Natural or Artificial Opening (ICD-10-PCS; 2016-11-17)
DX: O14.14 Severe pre-eclampsia complicating childbirth (principal); Z3A.36 36 weeks gestation of pregnancy; Z37.0 Single live birth; O13.4 Gestational [pregnancy-induced] hypertension without significant proteinuria, complicating childbirth; O99.284 Endocrine, nutritional and metabolic diseases complicating childbirth; E89.0 Postprocedural hypothyroidism; E07.1 Dyshormogenetic goiter; O99.02 Anemia complicating childbirth; D64.9 Anemia, unspecified; O70.0 First degree perineal laceration during delivery; K21.9 Gastro-esophageal reflux disease without esophagitis; O69.81X0 Labor and delivery complicated by cord around neck, without compression, not applicable or unspecified